=== PATIENT | female | born 1935 | race Caucasian/White ===

== ENCOUNTER 2016-11-28 12:56 | Emergency (ER) | payer MEDICARE, OTHER ==
[~2016-11-28] VITALS: Ht 152.4 cm; Wt 49.9 kg
--- NOTE | 2016-11-28 13:18 | NUR ---
PT TO ED ROOM 08. BIB RA C/O HEADACHE S/P FLIPPIN OVER ON WHEELCHAIR. DENIES LOC, OR NECK PAIN. A/A/O x 1. CHANGED TO GOWN. SIDE RAILS UP. HOB ELEVATED. SEEN AND EVALUATED BY ED PROVIDER.
--- NOTE | 2016-11-28 14:11 | NUR ---
Patient is resting comfortably in bed with eyes closed. Easily aroused. VSS
--- NOTE | 2016-11-28 16:37 | NUR ---
Patient is resting comfortably in bed with eyes closed. Easily aroused. VSS
[2016-11-28 16:38] VITALS: BP 129/89
--- NOTE | 2016-11-28 17:32 | NUR ---
Patient discharged to care facility with caregivers in stable condition. Written and verbal after care instructions given. Patient and caregivers verbalized understanding of instruction.
== END 2016-11-28 17:31 | disposition home or self-care (01) ==
LOC: ER 13:00
DX: S09.90XA Unspecified injury of head, initial encounter (principal); M54.5 Low back pain; K21.9 Gastro-esophageal reflux disease without esophagitis; M48.02 Spinal stenosis, cervical region; M85.80 Other specified disorders of bone density and structure, unspecified site; Z86.73 Personal history of transient ischemic attack (TIA), and cerebral infarction without residual deficits; W05.0XXA Fall from non-moving wheelchair, initial encounter; Y93.89 Activity, other specified; Y92.89 Other specified places as the place of occurrence of the external cause; Y99.8 Other external cause status
CPT/HCPCS: 70450-TC; 72100-TC; 72125-TC; A4606; Z7610

== ENCOUNTER 2016-12-02 04:38 | Emergency (ER) | payer MEDICARE ==
[~2016-12-02] VITALS: Ht 167.6 cm; Wt 63.5 kg
--- NOTE | 2016-12-02 04:45 | NUR ---
PT TAWANNA FULLER 81 FROM HOME PER DOOR TO DOOR SALESPERSON "SHE WAS GRUNTING SO I CALLED 911" PT A/O X 1 RESPONDS TO NAME, ANSWERS SIMPLE QUESTIONS WITH YES/NO, BREATH SOUNDS GRUNTING, SYMMETRICAL CHEST RISE FALL, SAT 99% ON RA, NO C/O PAIN, G-TUBNE TO L ABD NO IRRITATION NOTED.
[2016-12-02 05:40] LABS: BASOPHILS % (AUTO) 0.3 % (0.0-2.0); EOSINOPHILS # (AUTO) 0.2 /CMM (0.0-0.7); EOSINOPHILS % (AUTO) 1.5 % (0.0-6.0); HEMATOCRIT 47 % (33-45); HEMOGLOBIN 15.7 g/dL (11.5-14.8); LYMPHOCYTES # (AUTO) 1.1 /CMM (0.8-4.8); MEAN CORPUSCULAR HEMOGLOBIN 28 PG (26.0-33.0); MEAN CORPUSCULAR HGB CONC 33 g/dl (31.0-36.0); MEAN CORPUSCULAR VOLUME 85 fL (82-100); MONOCYTES # (AUTO) 0.6 /CMM (0.1-1.30); MONOCYTES % (AUTO) 5.4 % (2.0-12.0); NEUTROPHILS # (AUTO) 9.3 /CMM (1.8-8.9); NEUTROPHILS % (AUTO) 82.8 % (43.0-81.0); PLATELET COUNT (AUTO) 264 /CMM (150-450); RDW COEFFICIENT OF VARIATION 13.8 (11.5-15.0); RED BLOOD CELL COUNT(AUTO) 5.54 MIL/uL (4.0-5.2); WHITE BLOOD COUNT (AUTO) 11.2 K/uL (4.3-11.0)
[2016-12-02 05:52] LABS: CALCIUM, SERUM 9.5 mg/dL (8.5-10.1); CARBON DIOXIDE 29 mmol/L (21-32); CHLORIDE 99 mmol/L (98-107); CREATININE 0.6 mg/dL (0.6-1.3); GLUCOSE 93 mg/dL (74-106); POTASSIUM 4.2 mmol/L (3.5-5.1); SODIUM SERUM 136 mmol/L (136-145); UREA NITROGEN, BLOOD 16 mg/dL (7-18)
[2016-12-02 05:53] LABS: SERUM AMMONIA 16 umol/L (11-32)
[2016-12-02 05:54] LABS: INR 0.93 (0.87-1.13); PROTHROMBIN TIME 9.9 SECS (9.5-12.7)
[2016-12-02 06:07] LABS: TROPONIN I < 0.017 ng/mL (0.00-0.056)
[2016-12-02 06:11] LABS: ALANINE AMINOTRANSFERASE 36 U/L (12-78); ALBUMIN 3.6 g/dL (3.4-5.0); ALKALINE PHOSPHATASE 149 U/L (46-116); ASPARTATE AMINOTRANSFERASE 20 U/L (15-37); BILIRUBIN,DIRECT 0.1 mg/dL (0.0-0.2); BILIRUBIN,TOTAL 0.5 mg/dL (0.2-1.0); TOTAL PROTEIN, SERUM 8.5 g/dL (6.4-8.2)
[2016-12-02 06:13] LABS: ACETAMINOPHEN < 2 ug/ml (10-30); ALCOHOL, BLOOD < 3 mg/dL (0-0); SALICYLATE 0.7 mg/dL (2.8-20.0)
--- NOTE | 2016-12-02 06:50 | NUR ---
PT BROUGHT BACK FROM CT AT THIS TIME. BREATHING EVEN/UNLABORED, SEARCH ENGINE OPTIMIZATION SPECIALIST IN PLACE, PERSONAL FEEDING NURSE IS BEDSIDE WITH OTHER CAREGIVER.
[2016-12-02 06:55] LABS: APPEARANCE,URINE CLOUDY (CLEAR); BILIRUBIN,URINE NEGATIVE (NEGATIVE); BLOOD, URINE TRACE-INTA Ery/uL (NEGATIVE); COLOR,URINE YELLOW (YELLOW); KETONES,URINE NEGATIVE (NEGATIVE); LEUKOCYTE ESTERASE ,URINE 3+ (NEGATIVE); NITRITE, URINE POSITIVE (NEGATIVE); PROTEIN,URINE NEGATIVE (NEGATIVE); UGLUCOSE NEGATIVE (NEGATIVE); UROBILINOGEN,URINE 0.2 EU/dL (0.2)
[2016-12-02 07:02] LABS: BACTERIA,URINE 2+ /HPF (None Seen); SQUAMOUS EPITHELIAL CELL,UR Moderate /HPF (None Seen); WBC,URINE TOO NUMEROUS TO COUN /HPF (0-3)
--- NOTE | 2016-12-02 08:39 | NUR ---
PANEL ON-CALL PAGED
[2016-12-02] MEDS ORDERED: LACT1CAP69 GT (09:17)
[2016-12-02] MEDS ORDERED: CHOL200026 GT (09:17)
[2016-12-02] MEDS ORDERED: CRAN400C GT (09:17)
[2016-12-02] MEDS ORDERED: DOCU50LI GT (09:17)
[2016-12-02] MEDS ORDERED: ATOR20TA GT (09:17)
[2016-12-02] MEDS ORDERED: CLON0.1T GT (09:17)
[2016-12-02] MEDS ORDERED: PANT40SU2 GT (09:17)
[2016-12-02] MEDS ORDERED: CALC500T71 GT (09:17)
[2016-12-02] MEDS ORDERED: CLOP75TA2 GT (09:17)
[2016-12-02] MEDS ORDERED: ACET-73 GT (09:17)
[2016-12-02] MEDS ORDERED: CARB1TAB24 PO (09:17)
[2016-12-02] MEDS ORDERED: VITS42.53 TP (09:17)
[2016-12-02] MEDS ORDERED: MULT1TAB11 GT (09:17)
[2016-12-02] MEDS ORDERED: NUTR250L48 GT (09:28)
--- NOTE | 2016-12-02 09:49 | NUR ---
FAXED FACESHEET TO [phone]. ACCE[address] PHYSICIAN DR NACHO HIGH
--- NOTE | 2016-12-02 10:38 | NUR ---
DR WONG SPEAKING WITH [facility] MD DR ANGELLA KNOWLES
[2016-12-02 14:40] VITALS: BP 169/78
--- NOTE | 2016-12-02 15:08 | NUR ---
BAKARI FROM [facility] TRANSFER LINE [address] BED [facility]. NUMBER FOR REPORT [phone]. DR PERALES IS ACCEPTING THE PT. [phone] OPT#4.
--- NOTE | 2016-12-02 15:22 | NUR ---
20 MINUTES ETA FOR BLS TRANSPORT
--- NOTE | 2016-12-02 15:44 | NUR ---
REPORT GIVEN TO XIOMARA DUEÑAS FOR VIDA AT [facility].
== END 2016-12-02 16:32 ==
LOC: ER 04:40 → UNDOADMIN 09:00 → TELE 09:00 → TRANSITION 16:45
DX: S22.089A Unspecified fracture of T11-T12 vertebra, initial encounter for closed fracture (principal); R52 Pain, unspecified; R51 Headache; R82.99 Other abnormal findings in urine; R94.6 Abnormal results of thyroid function studies; R41.0 Disorientation, unspecified; K21.9 Gastro-esophageal reflux disease without esophagitis; G20 Parkinson's disease; I10 Essential (primary) hypertension; Z86.73 Personal history of transient ischemic attack (TIA), and cerebral infarction without residual deficits; Z93.1 Gastrostomy status; W05.0XXA Fall from non-moving wheelchair, initial encounter; Y93.89 Activity, other specified; Y92.89 Other specified places as the place of occurrence of the external cause; Y99.9 Unspecified external cause status
CPT/HCPCS: 36415; 51701; 70450; 71010; 74176; 80048; 80076; 80329; 81001; 82140; 83605; 84443; 84484; 85025; 85730; 87040; 87077; 87086; 87186; 93005; 96365; 99285; A4216; A4606; G0480 ×2; J2543; J7030; J7040; J7050; J7060; 81000-TC; Z7610